=== PATIENT | female | born 1935 | race Two or more races ===

== ENCOUNTER 2016-06-09 11:29 | Emergency (ER) | payer MEDICAID ==
[2016-06-10] MEDS ORDERED: HYDROcodone-ACET 10/325MG TAB PO ONE (00:30)
[2016-06-10 01:13] VITALS: BP 136/68
== END 2016-06-10 02:18 | disposition home or self-care (01) ==
LOC: ER 12:15
DX: B02.9 Zoster without complications (principal)
CPT/HCPCS: 94761